=== PATIENT | female | born 1995 | race Caucasian/White ===

== ENCOUNTER → 2018-04-03 | Outpatient (CLI) | payer BC ==
--- NOTE | 2018-04-03 09:59 | Diagnostic Imaging Report ---
PROCEDURE: MRI lumbar spine. TECHNIQUE: Multiplanar, multisequence MRI of the lumbar spine was performed without contrast. INDICATION: Low back pain and left leg pain. COMPARISON: No prior studies are available for comparison. FINDINGS: There is some straightening of the normal lumbar lordotic curvature. Vertebral body heights are maintained. No geographic marrow lesion or compression fracture is seen. There is some loss of height and signal intensity to the L4-5 and L5-S1 intervertebral disc compatible with degenerative disc disease. Remaining lumbar discs show normal height and hydration. The conus is unremarkable at the L1-2 level. T12-L1: No central canal or neural foraminal narrowing is identified. L1-2: Unremarkable. L2-3: Unremarkable. L3-4: Unremarkable. L4-5: There is a large wide-based midline/left paramidline and posterolateral disc protrusion. This indents the ventral thecal sac. This produces significant narrowing of the left lateral recess and also mild narrowing of the left neural foramen. Right neural foramen is patent. There is some mild narrowing of the canal centrally due to the disc protrusion. L5-S1: Broad-based disc/osteophyte complex is seen. This does results in moderate right and mild left neuroforaminal narrowing. There is also bilateral lateral recess narrowing, right greater. Central canal is patent. Paraspinous tissues are unremarkable. IMPRESSION: 1. L4-5 and L5-S1 degenerative disc disease. There is a large wide based disc protrusion at the L4-5 level in the midline/left paramidline posterior lateral region resulting in central canal, left lateral recess and neural foraminal narrowing. Degenerative changes at L5-S1 results in bilateral lateral recess and neural foraminal narrowing, as described. Dictated by: Dictated on workstation # [id number]
== END ==
LOC: RAD 07:50
PROVIDERS: ATTEND Internal Medicine
DX: M51.17 Intervertebral disc disorders with radiculopathy, lumbosacral region (principal); M47.27 Other spondylosis with radiculopathy, lumbosacral region; M48.07 Spinal stenosis, lumbosacral region
CPT/HCPCS: 72148